=== PATIENT | male | born 1970 | race Asian ===

== ENCOUNTER → 2018-04-17 | Outpatient (REF) | payer BC ==
[~2018-04-17] MED LIST: ALB18R INH; AMOX-362 PO; AMOX500T10 PO; CHOL200074 PO; CLAR-1 PO; ESOM20CA31 PO; ESOM40CA2 PO; ESOM40CA42 PO; ESOM40CA6 PO; FEXO-67 PO; FOLI-68 PO; LISI-353 PO; LORA-802 PO; MULT-885 PO; OMEG-11 PO; PANT20TA27 PO; SIMV-49 PO
[2018-04-17 10:09] LABS: LDL CHOLESTEROL 119 mg/dl
== END ==
LOC: ZZSENDIN 09:34
PROVIDERS: ATTEND Physician Assistant
DX: E78.2 Mixed hyperlipidemia (principal)
CPT/HCPCS: 82040; 82247; 82310; 82374; 82435; 82465; 82565; 82947; 83718; 84075; 84132; 84155; 84295; 84450; 84460; 84478; 84520

== ENCOUNTER → 2018-07-10 | Outpatient (REF) | payer BC | LOC: ZZSENDIN 13:17 | PROVIDERS: ATTEND Physician Assistant | DX: E29.1 Testicular hypofunction (principal) | CPT/HCPCS: 84403 ==

== ENCOUNTER → 2018-08-15 | Outpatient (REF) | payer BC | LOC: ZZSENDIN 14:31 | PROVIDERS: ATTEND Physician Assistant | DX: R06.00 Dyspnea, unspecified (principal) | CPT/HCPCS: 83880 ==

== ENCOUNTER → 2018-08-25 | Outpatient (CLI) | payer BC | LOC: US 01:56 | PROVIDERS: ATTEND Physician Assistant | DX: R06.00 Dyspnea, unspecified (principal) | CPT/HCPCS: 93306 ==